=== PATIENT | male | born 1995 | race Caucasian/White ===

== ENCOUNTER → 2016-07-21 | Outpatient (CLI) | payer BC ==
--- NOTE | 2016-07-21 11:32 | DX ---
Right thumb series 3 views 1108 hours Clinical Indications: Injured right thumb 2 weeks ago weight lifting. Findings: Bones are intact without fracture or dislocation. No periosteal reaction, erosion, or rad iopaque foreign body. Impression: Normal right thumb series.
== END ==
LOC: BMCIMAGING 11:12
PROVIDERS: ATTEND Emergency Medicine
DX: M79.644 Pain in right finger(s) (principal)

== ENCOUNTER 2016-09-28 20:02 | Emergency (ER) | payer BC ==
[2016-09-28 20:18] VITALS: PULSE 81; TEMP 97.5
[2016-09-28] MEDS ORDERED: HYDROCOD/APAP 5/325 PREPACK#6 BTL TAKEHOME ONE (22:12)
--- NOTE | 2016-09-28 22:12 | EDPHY ---
H & P Stated Complaint: Fell playing rugby, hurt his neck Time Seen by Provider: 09/28/16 21:08 HPI/ROS: Chief complaint: Neck and back pain History of present illness: This is a 21-year-old male who presents to the emergency department for evaluation of neck and back pain. Patient was playing rugby yesterday when another player fell on him causing him to over flex his neck and upper back. Since then he has had increasing neck and upper back pain. Worse with movement, better with rest. He denies other alleviating or aggravating factors. Denies other associated signs or symptoms: There was no loss of consciousness, no headache, no chest pain or abdominal pain, no pain in the extremities, he denies paresthesias, abnormal coolness, bowel or bladder dysfunction or other neurologic symptoms. - Personal History Current Tetanus/Diphtheria Vaccine: Yes Current Tetanus Diphtheria and Acellular Pertussis (TDAP): Yes Tetanus Vaccine Date: 2014 - Medical/Surgical History Hx Asthma: No Hx Chronic Respiratory Disease: No Hx Diabetes: No Hx Cardiac Disease: No Hx Renal Disease: No Hx Cirrhosis: No Hx Alcoholism: No Hx HIV/AIDS: No Hx Splenectomy or Spleen Trauma: No Other PMH: none - Social History Smoking Status: Never smoked - Physical Exam Exam: General Appearance: Alert, nontoxic Eyes: PERRLA Respiratory: Lungs clear to auscultation bilaterally Cardiac: Regular rate and rhythm. Gastrointestinal: Soft, nondistended, nontender Neurological: Alert and oriented x4. Cranial nerves 2-12 grossly intact. Strength and sensation intact and symmetrical. Patient is ambulating without difficulty. Skin: A head-to-toe examination does not reveal lesions consistent with trauma Musculoskeletal: Head is normocephalic, atraumatic. There is diffuse tenderness along the cervical and upper thoracic spine and paraspinal muscles. No specific point tenderness. No crepitus, bony deformity or step-off appreciated. Lower thoracic, lumbar and sacral region are unremarkable. Chest wall is intact palpation. Patient moving all extremities without difficulty. Constitutional: Initial Vital Signs Temperature (C) 36.4 C 09/28/16 20:13 Heart Rate 81 09/28/16 20:13 Respiratory Rate 16 09/28/16 20:13 Blood Pressure 132/69 H 09/28/16 20:13 O2 Sat (%) 94 09/28/16 20:13 O2 Delivery Mode Room Air Allergies/Adverse Reactions: No Known Allergies Allergy (Verified 09/28/16 20:18) Home Medications: Medication Instructions Recorded NK [No Known Home Meds] 09/28/16 Medical Decision Making ED Course/Re-evaluation: Patient seen in conjunction with my secondary supervising physician Dr. Braden Dodson. Patient presents to the emergency department for a neck and back injury that occurred yesterday. He is complaining of pain throughout his neck and back. He describes it as tight. Physical exam is unremarkable including a nonfocal neurologic exam. CT scan of the cervical spine and x-rays of the thoracic spine are unremarkable. Likely muscle strain. Dr. Dodson has cleared patients C-spine as patient was in a collar. Patient is discharged home. Home care is discussed. Return precautions are given. Patient voiced understanding and agreement with plan. Differential Diagnosis: Included but not limited to sprain or strain, bony fracture, herniated intervertebral disc, spinal cord injury - Data Points Medications Given: Discontinued Medications Hydrocodone Bitart/Acetaminophen ([place] 5/325mg Prepack#6) 1 btl TAKEHOME EDNOW ONE Stop: 09/28/16 22:13 Last Admin: 09/28/16 22:15 Dose: 1 btl Departure - Departure Disposition: Home, Routine, Self-Care Clinical Impression: Back strain Condition: Good Instructions: Hydrocodone/Acetaminophen (By mouth), Thoracic Back Strain (ED) Additional Instructions: Follow-up with a primary care doctor for recheck In regards to pain control see the following: Use ibuprofen [600] mg [3] times a day for the next 2-3 days for pain In addition You have been prescribed [[place]ard] for pain. [L[place]ard] contains Tylenol, do not take extra Tylenol/acetaminophen/Apap with it. It is sedating. If symptoms worsen or new symptoms develop return to the emergency room for recheck Referrals: NONE *PRIMARY CARE P,. [Primary Care Provider] - As per Instructions Tigist Marcus MD [Medical Doctor] - As per Instructions
[2016-09-28 22:41] VITALS: BP 130/77; RESP 18; O2SAT 96
== END 2016-09-28 22:20 | disposition home or self-care (01) ==
DX: S29.012A Strain of muscle and tendon of back wall of thorax, initial encounter (principal); W19.XXXA Unspecified fall, initial encounter; Y99.8 Other external cause status; Y93.63 Activity, rugby

== ENCOUNTER 2018-02-05 18:28 | Observation (INO) | payer BC, OTHER ==
[2018-02-05] MEDS ORDERED: ONDANSETRON 4 MG/2 ML VIAL IVP ONE (19:01)
[2018-02-05] MEDS ORDERED: HYDROmorphONE/DILAUDID 2 MG/ML INJ IVP ONE (19:01)
[2018-02-05] MEDS ORDERED: NS 1,000 ML IV ONE (19:01)
--- NOTE | 2018-02-05 19:08 | EDPHY ---
H & P Stated Complaint: Abd pain since 5am;+nausea, more localized RLQ now Time Seen by Provider: 02/05/18 18:56 HPI/ROS: CHIEF COMPLAINT: Abdominal pain HISTORY OF PRESENT ILLNESS: The patient is a 22-year-old healthy man who comes to the emergency department complaining of abdominal pain. He states that it began around 5 o'clock this morning and was diffuse. Now it is more for focal to his right lower quadrant. He has never had this pain before. No fevers. No nausea vomiting. He does have some loss of appetite. He last ate a subway 7 should noon. No diarrhea. No constipation. He had a normal bowel movement today. No urinary symptoms. No penile or testicular symptoms. REVIEW OF SYSTEMS: Constitutional: denies: chills, fever, recent illness, recent injury EENTM: denies: blurred vision, double vision, nose congestion Respiratory: denies: cough, shortness of breath Cardiac: denies: chest pain, irregular heart rate, lightheadedness, palpitations Gastrointestinal/Abdominal: See HPI Genitourinary: denies: dysuria, frequency, hematuria, pain Musculoskeletal: denies: joint pain, muscle pain Skin: denies: lesions, rash, jaundice, bruising Neurological: denies: headache, numbness, paresthesia, tingling, dizziness, weakness Hematologic/Lymphatic: denies: blood clots, easy bleeding, easy bruising Immunologic/allergic: denies: HIV/AIDS, transplant EXAM: GENERAL: Well-appearing, overweight and in no acute distress. HEAD: Atraumatic, normocephalic. EYES: Pupils equal round and reactive to light, extraocular movements intact, sclera anicteric, conjunctiva are normal. ENT: TMs normal, nares patent, oropharynx clear without exudates. Moist mucous membranes. NECK: Normal range of motion, supple without lymphadenopathy or JVD. LUNGS: Breath sounds clear to auscultation bilaterally and equal. No wheezes rales or rhonchi. HEART: Regular rate and rhythm without murmurs, rubs or gallops. ABDOMEN: Very slight right lower quadrant tenderness, no pain with percussion. Or heel tap, normoactive bowel sounds. No guarding, no rebound. No masses appreciated. BACK: No CVA tenderness, no spinal tenderness, step-offs or deformities EXTREMITIES: Normal range of motion, no pitting or edema. No clubbing or cyanosis. NEUROLOGICAL: Cranial nerves II through XII grossly intact. Normal speech, normal gait. 5/5 strength, normal movement in all extremities, normal sensation PSYCH: Normal mood, normal affect. SKIN: Warm, dry, normal turgor, no visible rashes or lesions. Source: Patient Exam Limitations: No limitations - Personal History Current Tetanus Diphtheria and Acellular Pertussis (TDAP): Yes Tetanus Vaccine Date: 2014 - Medical/Surgical History Hx Asthma: No Hx Chronic Respiratory Disease: No Hx Diabetes: No Hx Cardiac Disease: No Hx Renal Disease: No Hx Cirrhosis: No Hx Alcoholism: No Hx HIV/AIDS: No Hx Splenectomy or Spleen Trauma: No Other PMH: none - Family History Significant Family History: No pertinent family hx - Social History Smoking Status: Never smoked Alcohol Use: Sober Drug Use: None Constitutional: Initial Vital Signs Temperature (C) 36.7 C 02/05/18 18:30 Heart Rate 105 H 02/05/18 18:30 Respiratory Rate 16 02/05/18 18:30 Blood Pressure 142/66 H 02/05/18 18:30 O2 Sat (%) 94 02/05/18 18:30 O2 Delivery Mode Room Air Allergies/Adverse Reactions: No Known Allergies Allergy (Verified 02/05/18 18:29) Home Medications: Medication Instructions Recorded NK [No Known Home Meds] 09/28/16 Medical Decision Making - Diagnostics Imaging Results: Imaging Impressions Abdomen CT 02/05/18 19:01 Impression: 1. Mild stranding adjacent to the mid and distal appendix with mild enlargement of the mid appendix with subtle hyperemia, likely representing early acute appendicitis. 2. Enlarged fatty liver. 3. Mild splenomegaly. 4. Mildly prominent lymph nodes, likely reactive. 5. Additional findings as above. Findings discussed with NERI HUDSON 02/05/2018 at 20:06. ED Course/Re-evaluation: 8:15 p.m. discussed the case with Dr. Awad who will consult. Differential Diagnosis: Partial list of the Differential diagnosis considered include but were not limited to; appendicitis, gastroenteritis, constipation and although unlikely based on the history and physical exam, I also considered perforation, volvulus. - Data Points Laboratory Results: Laboratory Results 02/05/18 19:04 02/05/18 19:04 02/05/18 02/05/18 19:04 19:04 WBC 7.44 10^3/uL 10^3/uL (3.80-9.50) RBC 4.62 10^6/uL 10^6/uL (4.40-6.38) Hgb 14.9 g/dL g/dL (13.7-17.5) Hct 41.2 % % (40.0-51.0) MCV 89.2 fL fL (81.5-99.8) MCH 32.3 pg pg (27.9-34.1) MCHC 36.2 g/dL g/dL (32.4-36.7) RDW 12.2 % % (11.5-15.2) Plt Count 157 10^3/uL 10^3/uL (150-400) MPV 10.2 fL fL (8.7-11.7) Neut % (Auto) 62.0 % % (39.3-74.2) Lymph % (Auto) 26.1 % % (15.0-45.0) [place] % (Auto) 8.9 % % (4.5-13.0) Eos % (Auto) 2.4 % % (0.6-7.6) Baso % (Auto) 0.3 % % (0.3-1.7) Nucleat RBC Rel Count 0.0 % % (0.0-0.2) Absolute Neuts (auto) 4.62 10^3/uL 10^3/uL (1.70-6.50) Absolute Lymphs (auto) 1.94 10^3/uL 10^3/uL (1.00-3.00) Absolute Monos (auto) 0.66 10^3/uL 10^3/uL (0.30-0.80) Absolute Eos (auto) 0.18 10^3/uL 10^3/uL (0.03-0.40) Absolute Basos (auto) 0.02 10^3/uL 10^3/uL (0.02-0.10) Absolute Nucleated RBC 0.00 10^3/uL 10^3/uL (0-0.01) Immature Gran % 0.3 % % (0.0-1.1) Immature Gran # 0.02 10^3/uL 10^3/uL (0.00-0.10) Sodium 136 mEq/L mEq/L (135-145) Potassium 3.9 mEq/L mEq/L (3.3-5.0) Chloride 102 mEq/L mEq/L (97-110) Carbon Dioxide 25 mEq/l mEq/l (22-31) Anion Gap 9 mEq/L mEq/L (8-16) BUN 21 mg/dL mg/dL (7-23) Creatinine 1.1 mg/dL mg/dL (0.7-1.3) Estimated GFR > 60 Glucose 137 mg/dL H mg/dL (70-100) Calcium 9.1 mg/dL mg/dL (8.5-10.4) Total Bilirubin 0.5 mg/dL mg/dL (0.1-1.4) Conjugated Bilirubin 0.2 mg/dL mg/dL (0.0-0.5) Unconjugated Bilirubin 0.3 mg/dL mg/dL (0.0-1.1) AST 37 IU/L IU/L (17-59) ALT 88 IU/L H IU/L (21-72) Alkaline Phosphatase 76 IU/L IU/L (38-126) Total Protein 6.5 g/dL g/dL (6.3-8.2) Albumin 3.9 g/dL g/dL (3.5-5.0) Lipase 85 IU/L IU/L (23-300) Medications Given: Discontinued Medications Hydromorphone HCl (Dilaudid) 0.5 mg IVP EDNOW ONE Stop: 02/05/18 19:02 Last Admin: 02/05/18 19:21 Dose: Not Given Sodium Chloride (Ns) 1,000 mls @ 0 mls/hr IV EDNOW ONE; Wide Open PRN Reason: Protocol Stop: 02/05/18 19:02 Last Admin: 02/05/18 19:18 Dose: 1,000 mls Ondansetron HCl (Zofran) 4 mg IVP EDNOW ONE Stop: 02/05/18 19:02 Last Admin: 02/05/18 19:21 Dose: Not Given Departure - Departure Disposition: [facility] Acute Clinical Impression: Acute appendicitis Condition: Fair Referrals: NONE *PRIMARY CARE P,. [Primary Care Provider] - As per Instructions
[2018-02-05 19:12] LABS: PLATELET COUNT 157 10^3/uL (150-400)
[2018-02-05] MEDS ORDERED: IOPAMIDOL (ISOVUE-300) 100 ML BTL ONE (19:26)
[2018-02-05] MEDS ORDERED: ERTAPENEM 1 GM in NS 100 ML IV ONE (20:23)
[2018-02-05] MEDS ORDERED: BUPIVACAINE 0.25% 30 ML SDV ONE (21:42)
[2018-02-05] MEDS ORDERED: HEPARIN 1000 UNIT/1 ML MDV ONE (21:42)
[2018-02-05] MEDS ORDERED: ceFAZolin 1 GM/5 ML SYR ONE (21:43)
[2018-02-05] MEDS ORDERED: LR 1,000 ML IV ONE (21:46)
[2018-02-05] MEDS ORDERED: ONDANSETRON 4 MG/2 ML VIAL ONE (22:06)
[2018-02-05] MEDS ORDERED: PROPOFOL 200 MG/20 ML VIAL ONE (22:06)
[2018-02-05] MEDS ORDERED: fentaNYL 100 MCG/2 ML INJ ONE ×2 (22:06→22:43)
[2018-02-05] MEDS ORDERED: ROCURONIUM 50 MG/5 ML VIAL ONE ×2 (22:06→22:43)
[2018-02-05] MEDS ORDERED: DEXAMETHASONE 4 MG/ML VIAL ONE (22:06)
[2018-02-05] MEDS ORDERED: LIDOCAINE 2% 5 ML SDV ONE (22:08)
[2018-02-05] MEDS ORDERED: ALBUTEROL 3 ML DEYVIAL IH PRN (22:15)
[2018-02-05] MEDS ORDERED: fentaNYL 100 MCG/2 ML INJ IVP PRN (22:15)
[2018-02-05] MEDS ORDERED: HYDROmorphONE/DILAUDID 1 MG/ML INJ IVP PRN (22:15)
[2018-02-05] MEDS ORDERED: ONDANSETRON 4 MG/2 ML VIAL IVP PRN (22:15)
[2018-02-05] MEDS ORDERED: ACETAMINOPHEN 500 MG TAB PO PRN (22:15)
[2018-02-05] MEDS ORDERED: DEXAMETHASONE 4 MG/ML VIAL IVP PRN (22:15)
[2018-02-05] MEDS ORDERED: NALOXONE HCL 0.4 MG/ML INJ IVP PRN (22:15)
--- NOTE | 2018-02-05 22:17 | PDANEPAE ---
ANE History of Present Illness Acute Appy ANE Past Medical History - Cardiovascular History Hx Hypertension: No - Pulmonary History Hx COPD: No Hx Asthma/Reactive Airway Disease: No Hx Sleep Apnea: No - Endocrine History Hx Diabetes: No ANE Review of Systems Review of Systems: ANE Patient History - Allergies Allergies/Adverse Reactions: No Known Allergies Allergy (Verified 02/05/18 18:29) - Home Medications Home Medications: Ibuprofen [Motrin (*)] 200 mg PO Q6H PRN 02/05/18 [Last Taken 02/05/18 10:00] - NPO status NPO Since - Liquids (Date): 02/05/18 NPO Since - Liquids (Time): 18:00 NPO Since - Solids (Date): 02/05/18 NPO Since - Solids (Time): 12:00 - Smoking Hx Smoking Status: Never smoked - Alcohol Use Alcohol Use: Sober ANE Labs/Vital Signs - Labs Result Diagrams: 02/05/18 19:04 02/05/18 19:04 - Vital Signs Blood Pressure: 133/71 Heart Rate: 71 Respiratory Rate: 18 O2 Sat (%): 92 Height: 187.96 cm Weight: 124.738 kg SOHAIL Physical Exam - Airway Mallampati Score: Class 2 Mouth exam: normal dental/mouth exam - Pulmonary Pulmonary: clear to auscultation - Cardiovascular Cardiovascular: regular rate and rhythym - ASA Status ASA Status: II, E ANE Anesthesia Plan Anesthesia Plan: general endotracheal anesthesia
[2018-02-05] MEDS ORDERED: SUGAMMADEX SODIUM 200 MG/2 ML VIAL IVP ONE (22:59)
--- NOTE | 2018-02-05 23:12 | POSTANESTH ---
Post Anesthetic Evaluation Cardiovascular Status: Normal, Stable Respiratory Status: Normal, Stable Level of Consciousness/Mental Status: Can Participate in Eval, Alert and Oriented Pain Control: Adequate, Prn Tx Ordered Nausea/Vomiting Control: Adequate, Prn Tx Ordered Complications Possibly Related to Anesthesia: None Noted
--- NOTE | 2018-02-05 23:50 | POSTOPPROG ---
Post Op Note Date of Operation: 02/05/18 Surgeon: Jose Grey Anesthesiologist: ELPIDIO Anesthesia: GET(General Endotracheal) Pre-op Diagnosis: ACUTE APPENDICITIS Post-op Diagnosis: SAME Indication: PAIN Procedure: LAP APPE Findings: ACUTE, NONPERFORATED APPENDICITIS Inf/Abcess present in the surg proc area at time of surgery?: Yes Depth: Organ Space EBL: Minimal Complications: 0 Specimen(s): APPENDIX
[2018-02-06] MEDS ORDERED: HYDROmorphONE/DILAUDID 1 MG/ML INJ IVP PRN ×2 (02:39→05:47)
[2018-02-06] MEDS ORDERED: KETOROLAC 15 MG/1 ML SDV IVP PRN (02:40)
[2018-02-06] MEDS ORDERED: KETOROLAC 30 MG/1 ML SDV IVP ONE (02:45)
[2018-02-06] MEDS ORDERED: ONDANSETRON 4 MG/2 ML VIAL IVP PRN (05:47)
[2018-02-06] MEDS ORDERED: OXYCODONE/APAP 5/325 TAB PO PRN (05:47)
[2018-02-06 08:19] VITALS: BP 133/70
--- NOTE | 2018-02-10 19:14 | GOP ---
[f rep st] OPERATIVE REPORT DATE OF OPERATION: 02/05/2018 SURGEON: Jose Grey MD CLIENT LEADER: There was no team assistant. ANESTHESIA: Dr. Torres. PREOPERATIVE DIAGNOSIS: Acute appendicitis. POSTOPERATIVE DIAGNOSIS: Acute appendicitis. PROCEDURE PERFORMED: Laparoscopic appendectomy. FINDINGS: Patient was found to have acute nonperforated appendicitis. ESTIMATED BLOOD LOSS: Negligible. DESCRIPTION OF PROCEDURE: The patient was taken to the operating room where he received a satisfacto ry general endotracheal anesthesia by Dr. Torres. He was placed in supine position, prepped and drape d in the usual sterile fashion. A periumbilical incision was made. A Veress needle inserted. Pneum operitoneum was established. Trocar was introduced. Laparoscope introduced. Good visualization was obtained. Two other trocars were placed in the lower abdomen under direct vision. The appendix was elevated up. It was moderately inflamed but not perforated. The mesoappendix was divided with the Harmonic Scalpel. The base of the appendix was skeletonized, it was then divided with Endo-EMILIANA stapl er and placed in a specimen bag. Hemostasis was assured, trocars removed under direct vision. Troca r sites were closed with 0 Vicryl for the fascia, 4-0 Monocryl subcuticular stitch for the skin. All layers infiltrated with 0.5% Marcaine. COMPLICATIONS: None. Taken to recovery room in good condition. /[id number]/MODL
--- NOTE | 2018-03-04 08:52 | GDS ---
[f rep st] DISCHARGE SUMMARY DISCHARGE DIAGNOSES: Acute appendicitis. CONSULTATIONS: General surgery, by Dr. Grey. SPECIAL TESTS: Abdominal CT scan. Please see report for full details. HOSPITAL COURSE: This is a healthy 22-year-old male, who presented to the emergency department compl aining of abdominal pain. It started that day and slowly became more focal to his right lower quadra nt. He did not have any nausea or vomiting. An abdominal CT scan obtained in the emergency departme nt revealed mild stranding adjacent to the mid and distal appendix with mild enlargement of the appendix with subtle hyperemia, likely representing early acute appendicitis. Dr. Grey from eneral surgery was consulted and discussed all risks and options, including surgery, with the patient . The patient understood and agreed to be taken to the operating room. He was taken to the operatin g room later that evening to undergo laparoscopic appendectomy. Following surgery, the patient's pos toperative course was unremarkable and he was discharged the next morning. At the time of discharge, he was tolerating a regular diet and passing flatus. He did not have any nausea or vomiting. His p ain was well controlled on oral pain medications. He was discharged home in good condition and asked to follow up in our office in 2 weeks. He was advised to call with fever, chills or increased pain. For medication list, please see MAR. [place] #: [id number]/[id number]
== END 2018-02-06 10:29 | disposition home or self-care (01) ==
LOC: F3N 23:43
PROVIDERS: ADMIT Surgery; ATTEND Surgery
PROC: 0DTJ4ZZ Resection of Appendix, Percutaneous Endoscopic Approach (ICD-10-PCS; principal; 2018-02-05 22:00)
DX: K35.3 Acute appendicitis with localized peritonitis (principal)
CPT/HCPCS: 96365; J1100; J1335; J2405; J2704; J3010; Q9967